=== PATIENT | male | born 1960 | race Caucasian/White ===

== ENCOUNTER → 2017-06-25 | Emergency (ER) | payer OTHER ==
[~2017-06-25] VITALS: Ht 177.8 cm; Wt 81.7 kg
[~2017-06-25] MED LIST: LISINOPRIL5 MG PO
== END ==
LOC: ED 16:28
PROC: 0HQEXZZ Repair Left Lower Arm Skin, External Approach (ICD-10-PCS; principal; 2017-06-25)
DX: S51.012A Laceration without foreign body of left elbow, initial encounter (principal); Z79.899 Other long term (current) drug therapy; W22.8XXA Striking against or struck by other objects, initial encounter
CPT/HCPCS: 12002; 73080; 99283

== ENCOUNTER 2018-11-10 07:43 | Day surgery (SDC) | payer OTHER ==
[~2018-11-10] VITALS: Ht 177.8 cm; Wt 85.7 kg
[~2018-11-10 07:43] MED LIST changes: +LISINOPRIL-HCT1 EACH PO
--- NOTE | 2018-11-10 10:30 | NUR ---
11/10/18 1030 Ml Hinojosa 1015- PT ARRIVES TO PACU AROUSABLE TO VOICE. RESP EVEN AND UNLABORED. OXYGEN SAT HIGH 90'S TO 100% ON 3L VIA NC. 1017- OXYGEN TURNED OFF. OXYGEN SAT MID TO HIGH 90'S ON RA. RESP EVEN AND UNLABORED. 1024- PT'S OXYGEN DROPPED TO 88% ON RA. PT ENCOURAGED TO TAKE DEEP BREATHS. PT IS ABLE TO COMPLETE THIS AND OXYGEN SAT INCREASED TO MID 90'S ON RA.
--- NOTE | 2018-11-10 17:10 | OR ---
[facility] [address], [place] [address] Signed DATE OF OPERATION: SURGEON: Christo Kim MD PREOPERATIVE DIAGNOSES: 1. Older brother of colon cancer at age 57. 2. Younger brother has a personal history of colonic polyps. POSTOPERATIVE DIAGNOSES: 1. Minimal right-sided diverticulosis. 2. 4 mm rectal polyps. PROCEDURE PERFORMED: Colonoscopy with hot biopsy. ESTIMATED BLOOD LOSS: None. INDICATIONS: Tom is a 58-year-old gentleman, asked to see me for his initial colonoscopy. He explained that his older brother was diagnosed and from metastatic colon cancer at age 57. His younger brother has gone for his colonoscopy and had multiple colonic polyps removed. Tom himself has no lower GI complaints. I gave Tom a pamphlet on colonoscopy and colorectal polyps and cancer. We looked at those in detail. He understands the nature of the test along with the risks including, but not limited to gas, bloating, crampy abdominal pain, bleeding, perforation, requiring surgery, and missed diagnosis. He also understands the need for IV conscious sedation. He had expressed understanding and wished to proceed. DESCRIPTION OF PROCEDURE: Tom was taken into our endoscopy suite and placed in the left lateral decubitus position. He was given IV sedation with 5 mg of Versed and 150 mcg of fentanyl. A digital rectal exam was performed and this was unremarkable. The adult colonoscope was introduced and advanced under direct visualization of camera without difficulty. The appendiceal orifice, [place]'s foot, and ileocecal valve were easily visualized. We took pictures throughout for photodocumentation. His prep was good. The scope was slowly withdrawn. He had a few diverticula in the right colon. He had several small polyps, 3 or 4 mm in size in the rectum. They were all biopsied and destroyed completely with hot biopsy forceps. Upon retroflexion of scope, he has very minimal internal hemorrhoid tissue. After this, the gas was suctioned out. The colonoscope removed. Tom tolerated the procedure quite well. Electronically Signed By: CHRISTO KIM MD 11/10/18 1710 PATIENT NAME: TOM RUSSELL OPERATIVE REPORT DATE OF : 62 REPORT #: [id number] PHYSICIAN: CHRISTO KIM MD PCP: SINDY HUMPHREY PA-C REPORT IS CONFIDENTIAL AND NOT TO BE RELEASED WITHOUT AUTHORIZATION [facility] [address] [place] [id number] Signed RECOMMENDATIONS: I will see Tom back in my office in 7 to 14 days to review his results. I suspect he will be on the 5-year rotation. Christo Kim MD ALB/SAULL /[id number] cc: MD Christo Yoon MD Copies: VLADIMIR DURAN MD, ANDREW L MD ~ Electronically Signed By: CHRISTO KIM MD 11/10/18 1710 PATIENT NAME: TOM RUSSELL OPERATIVE REPORT DATE OF : 62 REPORT #: [id number] PHYSICIAN: CHRISTO KIM MD PCP: SINDY HUMPHREY PA-C REPORT IS CONFIDENTIAL AND NOT TO BE RELEASED WITHOUT AUTHORIZATION
== END 2018-11-10 11:05 | disposition home or self-care (01) ==
LOC: OPS 07:43 → DS 07:46 → OPS 09:45 → DS 09:45 → OPS 11:05
PROVIDERS: Colon & Rectal Surgery
PROC: 0DBP8ZZ Excision of Rectum, Via Natural or Artificial Opening Endoscopic (ICD-10-PCS; principal; 2018-11-10 09:45)
DX: Z12.11 Encounter for screening for malignant neoplasm of colon (principal); D12.8 Benign neoplasm of rectum; K64.8 Other hemorrhoids; K57.30 Diverticulosis of large intestine without perforation or abscess without bleeding; Z80.0 Family history of malignant neoplasm of digestive organs; Z83.71 Family history of colonic polyps; Z79.899 Other long term (current) drug therapy
CPT/HCPCS: 99153; G0500; J2250; J3010; J7120

== ENCOUNTER 2020-11-18 06:56 | Emergency (ER) | payer OTHER ==
[~2020-11-18] VITALS: Ht 177.8 cm; Wt 85.7 kg
--- OUTSIDE RECORDS SUMMARY | 2020-11-18 07:02 | XMS ---
PreManage Notification: TOM RUSSELL Security Loss Claim Clerk Events No recent Security Events currently on file CRITERIA MET - ED - Positive COVID-19 Lab Result - [facility] PROVIDERS There are no care providers on record at this time. Sara has no Care Guidelines for this patient. Oral VISIT COUNT (12 MO.) 1 JOJO Palacios TOTAL 1 NOTE: Visits indicate total known visits. ED/UCC VISIT TRACKING (12 MO.) 11/18/2020 06:57 JOJO Hernandez OR TYPE: Emergency COMPLAINT: - SOB C+ INPATIENT VISIT TRACKING (12 MO.) No inpatient visits to display in this time frame [id number]
== END 2020-11-18 09:17 | disposition home or self-care (01) ==
LOC: ED 06:56
DX: U07.1 COVID-19 (principal); J12.82 Pneumonia due to coronavirus disease 2019; I10 Essential (primary) hypertension; Z79.899 Other long term (current) drug therapy
CPT/HCPCS: 71045; 80053; 85025; 85379; 99285-25

== ENCOUNTER 2024-04-02 11:54 | Emergency (ER) | payer OTHER ==
[~2024-04-02] VITALS: Ht 177.8 cm; Wt 87.7 kg
[2024-04-02] MEDS ORDERED: fentaNYL citrate 100 MCG/2 ML VIAL IV ONE (13:30)
[2024-04-02] MEDS ORDERED: ondansetron HCL 4 MG/2 ML VIAL IV ONE (13:30)
[2024-04-02] MEDS ORDERED: KETOROLAC TROMETHAMINE 15 MG/ML VIAL IV ONE (13:30)
[2024-04-02] MEDS ORDERED: LIDOCAINE HCL 4% 1 EACH PATCH TD ONE (13:30)
[2024-04-02 13:43] LABS: BASOPHILS 0.3 % (0-2); EOSINOPHILS 0.5 % (0-6); HEMATOCRIT 44.1 % (35.0-50.0); HEMOGLOBIN 15.6 g/dL (12.0-18.0); LYMPHOCYTES 19.6 % (24-44); MCH 33.2 (27-36); MCHC 35.3 g/dl (30-36); MONOCYTES 8.4 % (0-12); NEUTROPHILS 71.2 % (39-80); PLATELET COUNT 187 K/uL (140-440); RBC 4.69 M/ul (4.3-5.7); RDW 12.8 (10.5-15.0)
[2024-04-02 13:58] LABS: ALBUMIN 3.6 g/dL (3.4-5.0); ALBUMIN/GLOBULIN RATIO 0.92 (1.1-2.4); ANION GAP 14.7 (7-21); BILIRUBIN, TOTAL 1.1 ng/dL (0.2-1.0); BUN/CREATININE RATIO 11.11 (6.0-28.6); CALCIUM 9.5 mg/dL (8.5-10.1); CREATININE, SERUM 0.9 mg/dL (0.70-1.30); POTASSIUM 3.7 mmol/L (3.5-5.1); PROTEIN, TOTAL 7.5 g/dL (6.4-8.2)
[2024-04-02] MEDS ORDERED: VOLTAREN ARTHRI20 GM TD (15:25)
[2024-04-02] MEDS ORDERED: CYCLOBENZAPRINE10 MG PO (15:25)
[2024-04-02] MEDS ORDERED: LIDODERM1 EACH TOP (15:25)
[2024-04-02 15:30] VITALS: BP 125/75
[2024-04-02] MEDS ORDERED: LIDOCAINE PATCH REMOVAL 1 EA TD SCH (21:00)
== END 2024-04-02 15:36 | disposition home or self-care (01) ==
LOC: ED 11:54
PROVIDERS: Emergency Medicine
DX: R10.9 Unspecified abdominal pain (principal); N20.0 Calculus of kidney; I10 Essential (primary) hypertension; Z79.899 Other long term (current) drug therapy
CPT/HCPCS: 36415; 74177; 80053; 83605; 83690; 85025; 96375; 99284-25; A9270; J1885; J2405; J3010; Q9967

== ENCOUNTER 2025-02-23 08:15 | Day surgery (SDC) | payer OTHER ==
[~2025-02-23] VITALS: Ht 180.3 cm; Wt 94.0 kg
[~2025-02-23 08:15] MED LIST changes: +CYCLOBENZAPRINE10 MG PO; +IBLOOD GLUCOSE TEST STRIP 1 EA TEST VI PRN; +LACTATED RINGER'S 1,000 ML IV SCH; +LIDOCAINE HCL 1% 5 ML SDV INJ ONE; +LIDODERM1 EACH TOP; +VOLTAREN ARTHRI20 GM TD
[2025-02-23 09:01] VITALS: BP 118/78
--- NOTE | 2025-02-23 11:30 | NUR ---
CONTS TO WAIT UPDATE AGAIN.
--- NOTE | 2025-02-23 12:13 | NUR ---
CALLING RIDE PERSON TO UPDATE ON WAIT APPROX. 3 HRS. DENIES ANY NEEDS.
--- NOTE | 2025-02-23 13:51 | NUR ---
130 WAS UPDATED DENIES ANY NEEDS.
[2025-02-23] MEDS ORDERED: LIDOCAINE HCL 2% 5 ML SDV ONE (15:15)
--- NOTE | 2025-02-23 16:25 | NUR ---
02/23/25 1625 Kalen Preciado 1615: PT ARRIVED TO PACU TO VIA STRETCHER. PT NON AROUSABLE AT THIS TIME. PT ON 6L VIA MASK. REPORT TAKEN FROM ANDRE JOHNSTON. 1618: PT TITRATED TO RA AT THIS TIME. 1625: PT SATS REMAINS IN THE MID 90'S ON RA.
[2025-02-23 16:58] VITALS: BP 156/99
== END 2025-02-23 16:52 | disposition home or self-care (01) ==
LOC: DS 08:15 → OPS 08:15 → DS 10:45 → OPS 10:45 → DS 11:40 → OPS 11:40
PROVIDERS: ATTEND Surgery
PROC: 0DJD8ZZ Inspection of Lower Intestinal Tract, Via Natural or Artificial Opening Endoscopic (ICD-10-PCS; principal; 2025-02-23 11:40)
DX: Z09 Encounter for follow-up examination after completed treatment for conditions other than malignant neoplasm (principal); K57.30 Diverticulosis of large intestine without perforation or abscess without bleeding; K64.9 Unspecified hemorrhoids; I10 Essential (primary) hypertension; Z86.0100 Personal history of colon polyps, unspecified; Z80.0 Family history of malignant neoplasm of digestive organs; Z79.899 Other long term (current) drug therapy
CPT/HCPCS: J2003; J2704; J7121